=== PATIENT | female | born 1960 | race Caucasian/White ===

== ENCOUNTER 2019-04-06 05:46 | Day surgery (SDC) | payer SELFPAY ==
[2016-12-07 00:05] VITALS: BMI 20.3
[2019-04-06] VITALS (7 sets, daily range): BP systolic 96–105; BP diastolic 68–77; PULSE 68–75; RESP 16; TEMP 36.6–36.8; O2SAT 95–99; BMI 18.8
--- NOTE | 2019-04-06 06:56 | H&P.OPEN ---
History of Present Illness Date of Admission: 04/06/19 The patient is a 58 year old F who presents for a colonoscopy. Patient had a colonoscopy 5 years ago she has a family history of colon cancer. Past Medical/Surgical History - Planned Operation Planned Operative Procedure/s: COLONOSCOPY Date of Operative Procedure: 04/06/19 Permit Signed: Yes S.O.S: No Is This Patient Having a Total Joint: No - Previous Hospitalizations/Surgeries HX Hospitalizations: No HX of Surgeries: L BREAST LUMPECTOMY. COLONOSCOPY-SEVERAL Any Problems With Anesthesia: No You/Your Family Experience Fever (Hyperthermia) With Anes: No Cholinesterase deficiency: No - Cardiovascular Hx Chest Pain within Last 2 months: No Hx of Irregular Heartbeat and/or Afib: No Hx Heart Attack: No Hx Congestive Heart Failure: No Hx Rheumatic Fever: No Hx Hypertension: No Hx Internal Defibrillator: No Hx Pacemaker: No Hx Cardiac Catheterization: No Hx Cardiac Surgery/Stents/Etc.: No Hx Stress Test: No HX Edema: No Hx Pain in Legs when Walking/Leg Cramps: No - Respiratory Chronic Cough: No HX of Shortness of Breath: No Hoarseness: No Hx Chronic Obstructive Pulmonary Disease (COPD): No Hx Asthma: No Hx Emphysema: No Hx Sleep Apnea: No Hx Oxygen Use at Home: No Hx Respiratory Tract Infection/Cold (presently): No Do You Snore Loudly (louder than talking or can be heard): No Do You Often Feel Tired/ Fatigued/ Sleepy Dring Daytime?: No Has Anyone Observed You Stop Breathing During Sleep?: No Result (for STOP score): Negative Hx Smoking: No Smoking Status: Never smoker - Gastrointestinal Hx Gastroesophageal Reflux: No Hx Gastrointestinal Disorders: No Hx Gastrointestinal Bleed: No Hx Ulcer: No Hx Hiatal Hernia: No Difficulty Chewing/Swallowing: No Recent Onset of Swallowing Problems: No Special diet followed at home: No Hx Unplanned Weight Loss of 20#: No HX Unplanned Weight Gain of 20#: No - Neurological Hx Seizures: No HX Syncope/Blackout Spells/Unconsciousness: No Hx CVA/Stroke: No Hx Transient Ischemic Attacks (TIA): No Hx Multiple Sclerosis: No Hx Parkinson's Disease: No Hx Head/Neck Injury: No Hx Headaches: No Hx Back Injury/Pain: No Recent Onset of Speech Difficulty: No Restless Legs: No Does patient have nerve stimulator: No - Blood Disorder Hx Leukemia: No Bleeding Tendencies: No Hx Deep Vein Thrombosis: No Hx High Cholesterol: No Blood Transmitted Disease: No Hx Hepatitis: No Hx Cirrhosis: No Hx Anemia: No Hx Blood Disorders: No - Reproduction : No Is Patient Lactating: No Hx Hysterectomy: No Hx Tubal Ligation: No Are You Post Menopause: Yes - Genitourinary Hx Renal Disease: No - Musculoskeletal Hx Arthritis: Yes Hx Rheumatoid Arthritis: No Hx Gout: No Recent Onset of an Orthopedic Problem: No - Endocrine Hx Diabetes: No Thyroid Disease: No Hx Steroid Therapy: No - Psycho/Social Hx Substance Use: No Hx Alcohol Use: No Hx Anxiety: No Hx Depression: No Mental Illness: No Hx Dementia: No - Miscellaneous Hx Cancer: Yes - BREAST Recent Exposure to Contagious Disease: No Active MRSA: No Hx of C-Diff: No Any Loose Teeth: No Allergies No Known Allergies Allergy (Verified 04/06/19 06:11) - Discharge Is Pt Admitted From a [facility], or a Care Home: No Who Could Help: After D/C, Where Do you Plan to Go: Return Home - Physical Exam General: Alert, Oriented x3 HEENT: Atraumatic, PERRLA, EOMI, Normocephalic Lungs: Clear to auscultation Cardiovascular: Regular rate, Regular Rhythm, No murmurs Abdomen: Bowel Sounds Present, Soft, Non Tender, Non-Distended Vital Signs Temp Pulse Resp BP Pulse Ox 98.1 F 73 16 105/77 95 04/06/19 06:12 04/06/19 06:12 04/06/19 06:12 04/06/19 06:12 04/06/19 06:12 Oxygen Delivery Method Room Air Weight: 115 lb 1.301 oz Body Mass Index (BMI) 18.8 Assessment/Plan Assessment: Family history of colon cancer Plan: Colonoscopy Surgery Risks - Colonoscopy Risks Include but are not Limited To: Risks include but are not limited to: Bleeding, perforation requiring further surgery, inability to complete colonoscopy requiring barium enema.
--- NOTE | 2019-04-06 07:00 | COLBX_PTH ---
PATIENT: MICHAELA LEE LOC: EN U#:[id number] AGE/SX: 58/F ROOM: RE04/06/[address]: Dr. Quang Vincent MD : 1960 BED: DIS: 04/06/2019 SPEC #: [id number] RECD: 04/06/19 11:22 STATUS: SHAJI RECecille #: [id number] SERAFIN: 04/06/19 07:[address]: Quang Vincent DEPT: SURGICAL PATHOLOGY RECD BY: Diego Malloy ENTERED: 04/06/19 12:36 SP TYPE: COLON BX OTHR DR: No Primary Care Phys Tissues: Ascending colon Procedures: Surgery Specimen Level IV HEADER OPERATION: Colonoscopy - open access (MAC) PRE-OP DIAGNOSIS: Screening TISSUE SUBMITTED: Ascending colon polyp MICROSCOPIC DIAGNOSIS Ascending colon polyp, biopsy: Fragments of hyperplastic polyp. AM:jeff 04/07/19 MICROSCOPIC DESCRIPTION Slides are reviewed. GROSS DESCRIPTION Received in fixative is one container labeled with the patient's name and designated ascending colon polyp. The specimen consists of two irregular fragments of mae soft tissue that in aggregate measure 0.5 x 0.4 x 0.1 cm. The specimen is totally submitted in one cassette. / SJ:jeff 04/06/19 TC:5 CPT: 95415
--- NOTE | 2019-04-06 07:20 | OP.ENDO_ITS ---
04/06/2019 Kunal Cooper [address] [place] [address] Re : Colonoscopy procedure for Alvarez Ghosh Dear Dr. Cooper This procedure was performed on Saturday, April 06, 2019. My impressions and recommendations are as follows: Impressions : - One 5 mm polyp in the ascending colon, removed with a hot snare. Resected and retrieved. - The examination was otherwise normal. - The examined portion of the ileum was normal. Recommendations : - Discharge patient to home. - Resume previous diet. - Continue present medications. - Await pathology results. - Repeat colonoscopy in 3 years for surveillance. - Return to my office in 1 week. My findings are described in the full procedure note, which is enclosed. If I can be of further assistance, please feel free to contact me at Doctor phone number(s): , Fax: [phone], Work: . Sincerely, MD Quang Marquis MD 04/06/2019 7:19:51 AM This report has been signed electronically.
== END 2019-04-06 08:05 | disposition home or self-care (01) ==
LOC: EN 05:49 → AC 05:50
PROVIDERS: Visit Provider Surgery
PROC: 0DJD8ZZ Inspection of Lower Intestinal Tract, Via Natural or Artificial Opening Endoscopic (ICD-10-PCS; CPT 45378; principal; 2019-04-06 06:55)
DX: Z12.11 Encounter for screening for malignant neoplasm of colon (principal); K63.5 Polyp of colon; Z80.0 Family history of malignant neoplasm of digestive organs; Z85.3 Personal history of malignant neoplasm of breast
CPT/HCPCS: 45380; 88305; J7120

== ENCOUNTER 2020-11-16 08:00 | Outpatient (RCR) | payer MEDICARE, SELFPAY ==
[2019-04-06 06:12] VITALS: BMI 18.8
[2020-11-16] MEDS: COVID-19 VACC, MRNA(PFIZER)/PF 30 MCG/0.3 ML SYRINGE IM (15:38)
[2020-12-07] MEDS: COVID-19 VACC, MRNA(PFIZER)/PF 30 MCG/0.3 ML SYRINGE IM (15:20)
== END 2021-02-12 23:59 ==
LOC: IMMUN 08:00
PROVIDERS: PCP Family Medicine; Visit Provider Family Medicine
DX: Z23 Encounter for immunization (principal)
CPT/HCPCS: 0001A; 0002A; 91300

== ENCOUNTER → 2023-08-04 | Outpatient (CLI) | payer MEDICARE, OTHER, SELFPAY ==
--- NOTE | 2023-08-04 09:01 | NEURO ---
NCS and/or EMG Patient Report Ordering Doctor: Hardy Vergara DATE OF SERVICE: 08/04/23 Clinical Summary: This is a 63 year old female patient presenting with complaints of numbness and tingling in both hands. Symptoms are most pronounced in the right hand. This EMG/NCS was performed to evaluate for right/left carpal tunnel syndrome. Nerve Conduction Studies Summary: The right median-D2 SNAP distal latency was prolonged with reduced amplitude. The right median-APB CMAP distal latency was prolonged. Needle Examination Summary: Needle examination of select muscles of the bilateral upper extremities was normal. 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
== END | disposition home or self-care (01) ==
PROVIDERS: PCP Family Medicine; Referring Provider Specialist; Visit Provider Specialist
DX: G56.03 Carpal tunnel syndrome, bilateral upper limbs (principal)
CPT/HCPCS: 95886; 95913